=== PATIENT | male | born 1970 | race Caucasian/White ===

== ENCOUNTER 2019-10-20 16:37 | Observation (INO) ==
[2019-10-20] MEDS ORDERED: Naloxone 0.4 MG/ML INJ IVP PRN (19:24)
[2019-10-20] MEDS ORDERED: Ondansetron 4 MG/2 ML VIAL IVP PRN (20:09)
[2019-10-20] MEDS ORDERED: *HR* OxyCODONE/APAP 7.5/325 TABLET PO PRN (20:10)
[2019-10-20] MEDS: Nicotine 21 MG PATCH.TD24 TD SCH (20:30)
[2019-10-20] MEDS: 0.9 % Sodium Chloride 1,000 ML IVC SCH (21:12)
[2019-10-20] MEDS: *HR* Heparin 5,000 UNIT/ML VIAL SQ SCH (22:16)
[2019-10-21 04:13] LABS: Basophils % 0.5 %; Eosinophils # 0.1 K/mcL (0.0-0.6); Eosinophils % 1.5 %; Hematocrit 43.2 % (37.5-50.1); Hemoglobin 14.4 g/dL (12.9-16.9); Immature Granulocytes % 0.2 % (0-4); Lymphocytes # 3.1 K/mcL (0.6-4.6); Lymphocytes % 35.8 %; Mean Corpuscular HGB Conc 33.3 g/dL (31.6-35.5); Mean Platelet Volume 11.9 fL (9.4-12.4); Monocytes # 0.8 K/mcL (0.0-1.3); Neutrophils # 4.6 K/mcL (1.6-8.9); Platelet Count 210 K/mcL (140-400); Red Cell Distribution Width 12.7 % (11.5-14.5); White Blood Count 8.7 K/mcL (4.3-11.1)
[2019-10-21 04:25] LABS: BUN/Creatinine Ratio 20 (6-26); Blood Urea Nitrogen 25 mg/dL (6-20); Calcium 8.9 mg/dL (8.6-10.3); Carbon Dioxide 25 mEq/L (23-29); Chloride 106 mEq/L (98-107); Glucose 82 mg/dL (70-105); Osmolality,Calculated 287 (280-300); Sodium 137 mEq/L (136-145); eGFR For African Americans > 60 (> 60); eGFR For Non-African Americans > 60 (> 60)
[2019-10-21] MEDS: *HR* Heparin 5,000 UNIT/ML VIAL SQ SCH ×2 (06:02→13:54)
[2019-10-21] MEDS: Nicotine 21 MG PATCH.TD24 TD SCH (08:13)
[2019-10-21 10:30] LABS: Bilirubin,Urine Negative (Negative); Blood,Urine Trace (Negative); Clarity,Urine Clear (Clear); Color,Urine Yellow (Yellow); Glucose,Urine (UA) Normal (Normal); Ketones,Urine 40 mg/dL (Negative); Leukocyte Esterase,Urine Trace (Negative); Nitrite,Urine Negative (Negative); Protein,Urine Trace mg/dL (Neg-Trace); Specific Gravity,Urine 1.022 (1.010-1.025); Urobilinogen,Urine Normal (Normal)
[2019-10-21 10:33] LABS: Bacteria,Urine None Seen per hpf (None-Few); Hyaline Casts,Urine None Seen per lpf (None-Few); RBC,Urine 0-3 per hpf (0-3); Squamous Epithelial Cell,Urine Moderate per lpf (None-Few)
[2019-10-21] MEDS: 0.9 % Sodium Chloride 1,000 ML IVC SCH (11:12)
[2019-10-21] MEDS ORDERED: *HR* OxyCODONE Immed Rel 5 MG TABLET PO PRN (15:35)
[2019-10-21] MEDS ORDERED: Ondansetron 4 MG/2 ML VIAL IVP ONE (15:35)
[2019-10-21] MEDS ORDERED: *HR* HYDROmorphone PF 0.5 MG/0.5 ML SYRINGE IVP PRN (15:35)
[2019-10-21] MEDS ORDERED: *HR* Promethazine 25 MG/ML VIAL IVP PRN (15:35)
[2019-10-21] MEDS ORDERED: *HR* FentaNYL (PF) 100 MCG/2 ML VIAL ONE (16:17)
[2019-10-21] MEDS ORDERED: *HR* Propofol 200 MG/20 ML VIAL IVP ONE (16:19)
[2019-10-21] MEDS ORDERED: Lidocaine -MPF 2% 2 ML VIAL ONE ×2 (16:19)
[2019-10-21] MEDS ORDERED: Dexamethasone 4 MG/ML VIAL ONE (16:19)
[2019-10-21] MEDS ORDERED: Ondansetron 4 MG/2 ML VIAL ONE (16:19)
[2019-10-21] MEDS ORDERED: EPHEDrine 50 MG/ML VIAL ONE (16:42)
[2019-10-21] MEDS ORDERED: *HR* Belladonna Alkaloids/Opium 30 MG RECTAL SUPPOSITORY RC PRN (17:42)
[2019-10-21] MEDS ORDERED: Naloxone 0.4 MG/ML INJ IVP PRN (17:42)
[2019-10-21] MEDS ORDERED: 0.9 % Sodium Chloride 1,000 ML IVC SCH (17:42)
[2019-10-21] MEDS ORDERED: Ondansetron 4 MG/2 ML VIAL IVP PRN (17:42)
[2019-10-21] MEDS ORDERED: Ketorolac 15 MG/ML VIAL IVP PRN (17:42)
[2019-10-21] MEDS ORDERED: *HR* OxyCODONE/APAP 7.5/325 TABLET PO PRN (17:42)
[2019-10-21 18:43] VITALS: BP 177/71
[2019-10-22] MEDS ORDERED: Nicotine 21 MG PATCH.TD24 TD SCH (09:00)
[2019-10-25 09:50] LABS: Calculi Mass 25 mg
== END 2019-10-21 22:44 | disposition home or self-care (01) ==
LOC: 3ANU → SUATTDRO 18:16
PROVIDERS: ADMIT Family Medicine; ATTEND Internal Medicine

== ENCOUNTER 2020-03-09 06:37 | Observation (INO) ==
[2020-03-09] MEDS ORDERED: CeFAZolin Syr 2,000MG/20 ML 2,000 MG/20 ML SYRINGE IVPB ONE (07:02)
[2020-03-09] MEDS ORDERED: *HR* Midazolam HCl 2 MG/2 ML VIAL ONE (07:11)
[2020-03-09] MEDS ORDERED: *HR* Propofol 200 MG/20 ML VIAL IVP ONE (07:11)
[2020-03-09] MEDS ORDERED: *HR* FentaNYL (PF) 100 MCG/2 ML VIAL ONE ×2 (07:11→08:10)
[2020-03-09] MEDS ORDERED: Lidocaine -MPF 2% 2 ML VIAL ONE (07:12)
[2020-03-09] MEDS ORDERED: Isovue-300 50ML VIAL ONE (07:16)
[2020-03-09] MEDS ORDERED: *HR* OxyCODONE Immed Rel 5 MG TABLET PO PRN (07:19)
[2020-03-09] MEDS ORDERED: Ondansetron 4 MG/2 ML VIAL IVP ONE (07:19)
[2020-03-09] MEDS: Ringers Solution, Lactated 1,000 ML IVC SCH ×2 (07:21→10:41)
[2020-03-09] MEDS ORDERED: Acetaminophen IV 1,000 MG/100 ML INFUS..BTL ONE (07:25)
[2020-03-09] MEDS ORDERED: Ondansetron 4 MG/2 ML VIAL ONE (07:42)
[2020-03-09] MEDS ORDERED: Dexamethasone 4 MG/ML VIAL ONE (07:42)
[2020-03-09] MEDS: *HR* HYDROmorphone PF 0.5 MG/0.5 ML SYRINGE IVP PRN ×4 (09:38→10:07)
[2020-03-09] MEDS ORDERED: *HR* HYDROmorphone (PF) 1 MG/ML SYRINGE IVP PRN (10:15)
[2020-03-09] MEDS ORDERED: cloNIDine HCL 0.1 MG TABLET PO ONE (10:15)
[2020-03-09] MEDS: *HR* HYDROmorphone (PF) 1 MG/ML SYRINGE IVP PRN ×2 (10:25→10:42)
[2020-03-09] MEDS ORDERED: Naloxone 0.4 MG/ML INJ IVP PRN (11:13)
[2020-03-09] MEDS ORDERED: Hyoscyamine SL 0.125 MG TAB.SUBL SL PRN (11:13)
[2020-03-09] MEDS ORDERED: *HR* HYDROcodone/Acet 5/325 mg TABLET PO PRN (11:13)
[2020-03-09] MEDS ORDERED: Ondansetron 4 MG/2 ML VIAL IVP PRN (11:13)
[2020-03-09] MEDS ORDERED: *HR* Belladonna Alkaloids/Opium 60 MG RECTAL SUPPOSITORY RC PRN (11:13)
[2020-03-09] MEDS ORDERED: Acetaminophen 325 MG TABLET PO PRN (11:13)
[2020-03-09] MEDS: Nicotine 21 MG PATCH.TD24 TD SCH (11:59)
[2020-03-09] MEDS: 0.9 % Sodium Chloride 1,000 ML IVC SCH (12:11)
[2020-03-09 12:19] LABS: Prothrombin Time 11.1 Seconds (9.4-12.1)
[2020-03-09 12:20] LABS: Basophils % 0.4 %; Eosinophils % 0.2 %; Hematocrit 47.9 % (37.5-50.1); Hemoglobin 15.7 g/dL (12.9-16.9); Immature Granulocytes % 0.4 % (0-4); Lymphocytes % 10.5 %; Mean Corpuscular HGB Conc 32.8 g/dL (31.6-35.5); Mean Corpuscular Hemoglobin 29.6 pg (28.0-33.3); Mean Corpuscular Volume 90.4 fL (83.0-100.0); Mean Platelet Volume 12.8 fL (9.4-12.4); Monocytes # 0.1 K/mcL (0.0-1.3); Monocytes % 1.1 %; Platelet Count 216 K/mcL (140-400); Red Cell Distribution Width 12.9 % (11.5-14.5); Segmented Neutrophils % 87.4 %; White Blood Count 9.2 K/mcL (4.3-11.1)
[2020-03-09 12:32] LABS: BUN/Creatinine Ratio 9 (6-26); Blood Urea Nitrogen 10 mg/dL (6-20); Calcium 9.1 mg/dL (8.6-10.3); Carbon Dioxide 30 mEq/L (23-29); Chloride 102 mEq/L (98-107); Glucose 120 mg/dL (70-105); Osmolality,Calculated 288 (280-300); Potassium 3.8 mEq/L (3.5-5.1); Sodium 139 mEq/L (136-145); eGFR For African Americans > 60 (> 60); eGFR For Non-African Americans > 60 (> 60)
[2020-03-10] MEDS: 0.9 % Sodium Chloride 1,000 ML IVC SCH ×2 (01:57→19:55)
[2020-03-10] MEDS ORDERED: *HR* FentaNYL (PF) 100 MCG/2 ML VIAL ONE ×2 (09:16→14:25)
[2020-03-10] MEDS ORDERED: *HR* Midazolam HCl 2 MG/2 ML VIAL ONE ×2 (09:17→14:25)
[2020-03-10] MEDS ORDERED: *HR* Midazolam HCl 2 MG/2 ML VIAL IVP ONE (09:18)
[2020-03-10] MEDS ORDERED: *HR* FentaNYL (PF) 100 MCG/2 ML VIAL IVP ONE (09:18)
[2020-03-10] MEDS ORDERED: Isovue-300 50ML VIAL IVP ONE (09:38)
[2020-03-10] MEDS: Nicotine 21 MG PATCH.TD24 TD SCH (10:19)
[2020-03-10] MEDS ORDERED: Isovue-300 200 mL Infus..BTL ONE (14:13)
[2020-03-10] MEDS ORDERED: Dexamethasone 4 MG/ML VIAL ONE (14:25)
[2020-03-10] MEDS ORDERED: Ondansetron 4 MG/2 ML VIAL ONE (14:25)
[2020-03-10] MEDS ORDERED: Lidocaine -MPF 2% 2 ML VIAL ONE (14:25)
[2020-03-10] MEDS ORDERED: Ketorolac 30 MG/ML VIAL ONE (14:25)
[2020-03-10] MEDS ORDERED: *HR* Propofol 200 MG/20 ML VIAL IVP ONE (14:26)
[2020-03-10] MEDS ORDERED: *HR* Rocuronium Bromide 50 MG/5 ML VIAL ONE (14:26)
[2020-03-10] MEDS ORDERED: CEFAZOLIN IVP ONE (15:03)
[2020-03-10] MEDS ORDERED: WATER FOR INJ IVP ONE (15:03)
[2020-03-10] MEDS ORDERED: EPHEDrine 50 MG/ML VIAL ONE (15:22)
[2020-03-10] MEDS ORDERED: ceFAZolin 2,000 MG in Water for inj. (sterile) 20 ML IVP ONE ×2 (15:45→18:06)
[2020-03-10] MEDS ORDERED: *HR* HYDROMORPHONE 2 MG/ML VIAL ONE (16:01)
[2020-03-10] MEDS ORDERED: *HR* OxyCODONE Immed Rel 5 MG TABLET PO PRN (16:58)
[2020-03-10] MEDS ORDERED: Acetaminophen IV 1,000 MG/100 ML INFUS..BTL IVPB ONE (16:58)
[2020-03-10] MEDS ORDERED: *HR* HYDROmorphone PF 0.5 MG/0.5 ML SYRINGE IVP PRN (16:58)
[2020-03-10] MEDS ORDERED: *HR* Labetalol 20 MG/4 ML SYRINGE IVP PRN (16:58)
[2020-03-10] MEDS ORDERED: *HR* Promethazine 25 MG/ML VIAL IVP PRN (16:58)
[2020-03-10] MEDS ORDERED: *HR* HYDROmorphone 2 MG TABLET PO PRN (16:58)
[2020-03-10] MEDS ORDERED: *HR* Belladonna Alkaloids/Opium 60 MG RECTAL SUPPOSITORY RC PRN (18:06)
[2020-03-10] MEDS ORDERED: Acetaminophen 325 MG TABLET PO PRN (18:06)
[2020-03-10] MEDS ORDERED: Hyoscyamine SL 0.125 MG TAB.SUBL SL PRN (18:06)
[2020-03-10] MEDS ORDERED: Naloxone 0.4 MG/ML INJ IVP PRN (18:06)
[2020-03-10] MEDS ORDERED: Ondansetron 4 MG/2 ML VIAL IVP PRN (18:06)
[2020-03-10] MEDS ORDERED: *HR* HYDROcodone/Acet 5/325 mg TABLET PO PRN (18:06)
[2020-03-11] MEDS: 0.9 % Sodium Chloride 1,000 ML IVC SCH (07:01)
[2020-03-11 07:02] VITALS: BP 106/64
[2020-03-11] MEDS ORDERED: Nicotine 21 MG PATCH.TD24 TD SCH (09:00)
[2020-03-13 07:46] LABS: Calculi Mass 622 mg
== END 2020-03-11 11:46 | disposition home or self-care (01) ==
LOC: 3ANU 06:37 → SAMDAY 06:37 → 3ANU 11:07
PROVIDERS: ADMIT Urology; ATTEND Urology